=== PATIENT | female | born 1945 | race Caucasian/White ===

== ENCOUNTER 2020-05-08 10:35 | Outpatient (CLI) | payer OTHER, SELFPAY ==
--- NOTE | ~2020-05-08 | MM_ITS ---
EXAMINATION: MM screening sofía BI w rory HISTORY: Screening mammogram, history of left breast cancer TECHNIQUE: Craniocaudal and mediolateral oblique 3-D tomosynthesis images were obtained and synthetic 2-D images were generated. CAD analysis was submitted and interpreted. COMPARISON: 04/07/2019, 03/16/2018, 03/11/2017 BREAST PARENCHYMAL COMPOSITION: The breasts are almost entirely fatty. FINDINGS: There are stable lumpectomy changes of the inner left breast. There is no evidence of suspi cious mass, calcification, or architectural distortion to suggest malignancy in either breast. There has been no suspicious interval change. IMPRESSION: 1. No mammographic evidence of malignancy. 2. Recommend routine screening mammography in one year. BI-RADS Category 2: Benign finding(s). Reviewed, dictated and finalized at location A. KDOWN PERSON
== END 2020-05-08 10:36 | disposition home or self-care (01) ==
LOC: ANHIMG 10:43
PROVIDERS: PCP Family Medicine Adolescent Medicine; Visit Provider Family Medicine Adolescent Medicine
DX: Z12.31 Encounter for screening mammogram for malignant neoplasm of breast (principal)
CPT/HCPCS: 77063; 77067

== ENCOUNTER 2020-08-14 13:02 | Outpatient (CLI) | payer OTHER, MEDICARE, SELFPAY | END 2020-08-14 13:03 | disposition home or self-care (01) | LOC: ANHCOVIDVC 13:02 | PROVIDERS: PCP Family Medicine Adolescent Medicine | DX: Z23 Encounter for immunization (principal) | CPT/HCPCS: 0001A; 91300 ==

== ENCOUNTER 2020-09-04 12:58 | Outpatient (CLI) | payer OTHER, MEDICARE, SELFPAY | END 2020-09-04 12:59 | disposition home or self-care (01) | LOC: ANHCOVIDVC 12:59 | PROVIDERS: PCP Family Medicine Adolescent Medicine | DX: Z23 Encounter for immunization (principal) | CPT/HCPCS: 0002A; 91300 ==

== ENCOUNTER 2021-05-30 14:11 | Outpatient (CLI) | payer OTHER, SELFPAY ==
--- NOTE | ~2021-05-30 | MM_ITS ---
EXAMINATION: MM screening sofía BI w rory HISTORY: Screening mammogram, history of left breast cancer TECHNIQUE: Craniocaudal and mediolateral oblique 3-D tomosynthesis images were obtained and synthetic 2-D images were generated. CAD analysis was submitted and interpreted. COMPARISON: 05/08/2020, 04/07/2019, 03/16/2018 BREAST PARENCHYMAL COMPOSITION: The breasts are almost entirely fatty. FINDINGS: Lumpectomy changes are again noted in the left breast. There is no evidence of suspicious m ass, calcification, or architectural distortion to suggest malignancy in either breast. There has bee n no suspicious interval change. IMPRESSION: 1. No mammographic evidence of malignancy. 2. Recommend routine screening mammography in one year. BI-RADS Category 2: Benign finding(s). Reviewed, dictated and finalized at location A. CLUB ATTENDANT
== END 2021-05-30 14:12 | disposition home or self-care (01) ==
PROVIDERS: PCP Family Medicine Adolescent Medicine; Visit Provider Family Medicine Adolescent Medicine
DX: Z12.31 Encounter for screening mammogram for malignant neoplasm of breast (principal)
CPT/HCPCS: 77063; 77067

== ENCOUNTER 2022-07-16 09:21 | Outpatient (CLI) | payer OTHER, SELFPAY ==
--- NOTE | ~2022-07-16 | MM_ITS ---
EXAMINATION: MM screening sofía BI w rory HISTORY: Screening mammogram TECHNIQUE: Craniocaudal and mediolateral oblique 3-D tomosynthesis images were obtained and synthetic 2-D images were generated. CAD analysis was submitted and interpreted. COMPARISON: 05/30/2021, 05/08/2020, 04/07/2019 bilateral screening mammogram examinations BREAST PARENCHYMAL COMPOSITION: There are scattered areas of fibroglandular density. FINDINGS: Postoperative change from left partial mastectomy is again noted, stable in appearance. The re is no evidence of suspicious mass, calcification, or new architectural distortion to suggest malig wolfgang in either breast. There has been no suspicious interval change. IMPRESSION: 1. Status post left partial mastectomy for breast cancer. No mammographic evidence of malignancy. 2. Recommend routine screening mammography in one year. BI-RADS Category 2: Benign finding(s). Reviewed, dictated and finalized at location A. IMPRESSION: 1. Status post left partial mastectomy for breast cancer. No mammographic evide nce of malignancy. 2. Recommend routine screening mammography in one year. BI-RADS Category 2: Benign finding(s).
== END 2022-07-16 09:22 | disposition home or self-care (01) ==
LOC: ANHIMG 09:24
PROVIDERS: PCP Family Medicine Adolescent Medicine; Visit Provider Family Medicine Adolescent Medicine
DX: Z12.31 Encounter for screening mammogram for malignant neoplasm of breast (principal)
CPT/HCPCS: 77063; 77067

== ENCOUNTER 2023-09-09 09:23 | Outpatient (CLI) | payer OTHER, SELFPAY ==
--- NOTE | ~2023-09-09 | MM_ITS ---
EXAMINATION: MM screening sofía BI w rory HISTORY: Screening mammogram TECHNIQUE: Craniocaudal and mediolateral oblique 3-D tomosynthesis images were obtained and synthetic 2-D images were generated. CAD analysis was submitted and interpreted. COMPARISON: 07/16/2022, 05/30/2021 lateral screening mammogram examinations BREAST PARENCHYMAL COMPOSITION: There are scattered areas of fibroglandular density. FINDINGS: Status post left partial mastectomy for breast cancer. There is no evidence of suspicious m ass, calcification, or new architectural distortion to suggest malignancy in either breast. There has been no suspicious interval change. IMPRESSION: 1. No mammographic evidence of malignancy. 2. Recommend routine screening mammography in one year. BI-RADS Category 2: Benign finding(s). Reviewed, dictated and finalized at location A.
== END 2023-09-09 09:24 | disposition home or self-care (01) ==
LOC: ANHIMG 09:25
PROVIDERS: PCP Family Medicine Adolescent Medicine; Visit Provider Family Medicine Adolescent Medicine
DX: Z12.31 Encounter for screening mammogram for malignant neoplasm of breast (principal)
CPT/HCPCS: 77063; 77067

== ENCOUNTER 2024-10-18 09:24 | Outpatient (CLI) | payer MEDICARE, SELFPAY ==
--- NOTE | ~2024-10-18 | MM_ITS ---
EXAMINATION: MM screening sofía BI w rory HISTORY: Screening TECHNIQUE: Craniocaudal and mediolateral oblique 3-D tomosynthesis images were obtained and synthetic 2-D images were generated. CAD analysis was submitted and interpreted. COMPARISON: Comparison to multiple prior studies sequentially, with oldest reviewed study dated 03/04. BREAST PARENCHYMAL COMPOSITION: There are scattered areas of fibroglandular density FINDINGS: . Architectural distortion present in the lower inner quadrants of the left breast consiste nt with previous lumpectomy site. There is no evidence of suspicious mass, calcification, or architec tural distortion to suggest malignancy in either breast. There has been no suspicious interval change . IMPRESSION: 1. No mammographic evidence of malignancy. 2. Recommend routine screening mammography in one year. BI-RADS Category 1: Negative Reviewed, dictated and finalized at location A.
--- OUTSIDE RECORDS SUMMARY | 2024-10-18 10:17 | XMS_ITS | Continuity of Care Document ---
Author Organization [facility] Address [address] [place] [address] Phone Care Team Providers Care Rn Plastics Name Role Phone Brenton Moore Unavailable Unavailable Procedures Procedure Date Eye Exam & Treatment Refraction Eye Exam & Treatment Refraction Eye Exam Established Pt Advance Directives Directive Yes / No Effective Date File Name No Information Encounters Encounter Description Practice Location Reason(s) For Visit Diagnoses Date Provider Providers Copied on Encounter [facility], [address] [place] [address] [address], [place], [place], [id number], tel:[phone] [facility] No Information 4[address] 9 Teresa Farris. [address] , [address], [place], [place], [facility], . tel:[phone] [facility], [id number] [place] [address] [address], [place], [place], [id number], [place] tel:[phone] [facility] No Information 0-200 8 Teresa Farris. [address] , [address], [place], [address], . tel:[phone] [facility], [address], [place], [place], [id number], [place] tel:[phone] [facility] No Information Sep-2 4-200 7 Stephanie Arevalo. [address], [place], [place], [id number], [place]. tel:[phone] Referring Provider: Francisco Ribeiro, [facility], [place], [address]. tel:[phone] Family History Family Member Type Diagnosis Age At Onset No Information Payers Payer name Insurance type Covered republican ID Authoriza tion(s) No Information Social History Type Description Quantity Date Captured Comments Sex Female Smoking Status No Information Chief Complaint And Reason For Visit No Information Reason For Referral Reason For Referral No Information History Of Present Illness Encounter Date Complaint History Of Prese nt Illness No Information Functional Status Date Functional Assessmen t No Information Instructions Date Instruction Additional Infor mation No Information Assessments Type Assessment Date No Information Patient Care Teams Name Effective Dates (start - stop) Status Members No Information
== END 2024-10-18 09:25 | disposition home or self-care (01) ==
PROVIDERS: PCP Family Medicine Adolescent Medicine; Visit Provider Nurse Practitioner Family
DX: Z12.31 Encounter for screening mammogram for malignant neoplasm of breast (principal); Z85.3 Personal history of malignant neoplasm of breast
CPT/HCPCS: 77063; 77067